=== PATIENT | male | born 1955 | race Caucasian/White ===

== ENCOUNTER 2018-07-16 18:09 | Emergency (ER) | payer SELFPAY ==
--- NOTE | 2018-07-16 18:25 | ER Document Report ---
ED General - General Chief Complaint: Altered Mental Status Stated Complaint: POSSIBLE STROKE Time Seen by Provider: 07/16/18 18:19 Notes: Patient is a 63-year-old male with diabetes mellitus and hypertension that presents to the emergency department for chief complaint of altered mental status. History provided by EMS as the patient is not following commands currently. Per EMS the patient was last seen normal at 515. He started acting unusual, not talking, not following commands, he is normally alert, and walking normally, and per family they told EMS that he is typically talkative, and does not act this way, and never has before. No other history is obtainable at this time, has on history taking the patient is aphasic, and not talking at all at this time. Further history obtained by his at bedside, stated that he suddenly stopped speaking, and appeared scared, and was not answering questions or acting his normal self Past Medical History: Hypertension, diabetes mellitus Past Surgical History: Not obtainable at this time Social History: Smokes cigarettes daily, no alcohol or drug use. Family History: Reviewed and noncontributory for presenting illness Allergies: Reviewed, see documented allergy list. REVIEW OF SYSTEMS: Unless otherwise stated in this report the patient's positive and negative responses for review of systems for constitutional, eyes, ENT, cardiovascular, respiratory, gastrointestinal, neurological, genitourinary, musculoskeletal, and integumentary systems and related systems to the presenting problem are either as stated in the HPI or were not pertinent or were negative for the symptoms and/or complaints related to the presenting medical problem. PHYSICAL EXAMINATION: Vital signs reviewed, nursing noted reviewed. GENERAL: Well-appearing, well-nourished and in no acute distress. HEAD: Atraumatic, normocephalic. EYES: Eyes appear normal, extraocular movements intact, sclera anicteric, conjunctiva are normal. ENT: nares patent, oropharynx clear without exudates. Moist mucous membranes. NECK: Normal range of motion, supple without lymphadenopathy LUNGS: Breath sounds clear to auscultation bilaterally and equal. No wheezes rales or rhonchi. HEART: Regular rate and rhythm without murmurs ABDOMEN: Soft, nontender, normoactive bowel sounds. No rebound, guarding, or rigidity. No masses appreciated. EXTREMITIES: Nontender, good range of motion, no pitting or edema. NEUROLOGICAL: Patient moving all limbs, will withdrawal to pain in all limbs, appears to have receptive and expressive aphasia at this time, but would shake my hand, and follow what appeared to be social norms, in an attempt to understand what I was asking him. But would not follow simple commands such as asking him to point to the ceiling with his left hand. No obvious facial droop PSYCH: Flat affect, aphasic SKIN: Warm, Dry, normal turgor, no rashes or lesions noted on exposed skin - Related Data Allergies/Adverse Reactions: No Known Allergies Allergy (Unverified 07/16/18 19:27) Past Medical History - Social History Smoking Status: Current Every Day Smoker Family History: Reviewed & Not Pertinent Physical Exam - Vital signs Vitals: Pulse Resp BP Pulse Ox 109 H 18 118/71 97 07/16/18 18:10 07/16/18 18:10 07/16/18 18:10 07/16/18 18:10 Course - Re-evaluation Re-evalutation: Patient seen and examined vital signs reviewed. Laboratory data and imaging were ordered as appropriate for the patient's presenting symptoms and complaint, with consideration of any critical or life threatening conditions that may be associated with their obtained history and exam as noted above. NIH stroke scale score: 6, for inability to follow commands, and severe aphasia Results were reviewed when available and demonstrated acute thrombus in the left carotid artery, which is consistent with the patient's symptoms of aphasia , on my repeat evaluation, the patient was speaking, and was still noted to have receptive aphasia I called [facility], for transfer by [facility], for acute intervention, for his acute thrombus, causing his severe debilitating symptoms of expressive aphasia Plan for TPA, waiting for callback, if they want me to treat the patient with TPA prior to transfer. I personally discussed the risks and benefits of systemic TPA administration for acute CVA, including a 1 in 14 chance for intracranial hemorrhage, and other sources of bleeding, this patient I felt the benefits outweigh the risks, given that he was aphasic, which is a detriment, and severe disability, the patient's agreed and consented on the patient's behalf, as he currently had expressive aphasia. Case discussed with [facility], agreed with TPA administration, this was ordered, patient was given bolus and infusion, reevaluation the patient was improved, patient will be transported, initially plan was for air transport, however they were not flying, and ground transfer had to be arranged despite best efforts to have air transport, this was discussed with both the patient and patient's who is at bedside, and they agreed with this plan of care. Additionally the patient was given IV fluids after receiving contrast dye. Evaluation was most consistent with acute CVA causing expressive aphasia Results were discussed with the patient at this point after careful consideration I feel that that patient should be transferred to [facility] due to acute CVA, that potentially could benefit from clot retrieval, case was discussed with Dr. Ceasar Parker. This was discussed with the patient and his that it is in the best interest for their care to be transferred, the risks and benefits of transfer were discussed , including but not limited to clinical deterioration during transport, respiratory distress, and potential for traumatic injuries. Patient agreed with this plan of care. Patient was seen prior to transport when EMS arrived, was in stable condition, and cleared for transport. *Note is created using voice recognition software and may contain spelling, syntax or grammatical errors. Chest X-Ray 07/16/18 00:00 IMPRESSION: Cannot exclude left lower lobe pneumonia. Head CT 07/16/18 18:19 IMPRESSION: NORMAL BRAIN CT WITHOUT CONTRAST. EVIDENCE OF ACUTE STROKE: NO. Head CTA 07/16/18 18:19 IMPRESSION: NO CTA EVIDENCE OF STENOSIS OR ANEURYSM OF THE [place]. Neck CTA 07/16/18 18:19 IMPRESSION: FILLING DEFECT OCCUPYING MOST OF THE LUMEN OF THE PROXIMAL LEFT COMMON CAROTID ARTERY BEGINNING AT THE AORTIC ARCH AND EXTENDING FOR A LENGTH OF APPROXIMATELY 2 CM. THIS COULD REPRESENT A THROMBUS OR A LARGE PLAQUE. THE REMAINDER OF THE RIGHT AND LEFT CAROTID ARTERIES ARE OTHERWISE PATENT WITH NO SIGNIFICANT STENOSIS AND NO OCCLUSIONS. VERTEBRAL ARTERIES ARE ALSO PATENT. Laboratory 07/16/18 07/16/18 07/16/18 18:35 18:35 18:35 WBC 10.2 RBC 5.20 Hgb 15.4 Hct 43.7 MCV 84 MCH 29.6 MCHC 35.3 RDW 13.6 Plt Count 236 Seg Neutrophils % 68.1 Lymphocytes % 18.2 Monocytes % 7.9 Eosinophils % 5.2 Basophils % 0.6 Absolute Neutrophils 7.0 Absolute Lymphocytes 1.9 Absolute Monocytes 0.8 Absolute Eosinophils 0.5 Absolute Basophils 0.1 PT 14.6 INR 1.08 APTT 33.3 Sodium 134.6 L Potassium 4.7 Chloride 104 Carbon Dioxide 22 Anion Gap 9 BUN 31 H Creatinine 1.50 H Est GFR ( Amer) 57 L Est GFR (Non-Af Amer) 47 L Glucose 141 H Calcium 9.1 Magnesium 2.4 H Total Bilirubin 1.4 H Direct Bilirubin 0.6 H Neonat Total Bilirubin Not Reportable Neonat Direct Bilirubin Not Reportable Neonat Indirect Bili Not Reportable AST 34 ALT 45 Alkaline Phosphatase 66 Total Protein 7.3 Albumin 4.2 Serum Alcohol < 10 - Vital Signs Vital signs: Temp Pulse Resp BP Pulse Ox 98.7 F 102 H 18 146/82 H 97 07/16/18 21:31 07/16/18 21:38 07/16/18 21:38 07/16/18 21:38 07/16/18 21:38 - Laboratory Result Diagrams: 07/16/18 18:35 07/16/18 18:35 Laboratory results interpreted by me: 07/16/18 18:35 Sodium 134.6 L BUN 31 H Creatinine 1.50 H Est GFR ( Amer) 57 L Est GFR (Non-Af Amer) 47 L Glucose 141 H Magnesium 2.4 H Total Bilirubin 1.4 H Direct Bilirubin 0.6 H - EKG Interpretation by Me Additional EKG results interpreted by me: 07/16/18 18:36 EKG demonstrates sinus tachycardia with a ventricular rate of 112 bpm, left axis deviation, normal intervals, no evidence of acute ischemia on this EKG. Critical Care Note - Critical Care Note Total time excluding time spent on procedures (mins): 80 Comments: Critical care time 80 minutes exclusive from separate billable procedures for a patient requiring complex medical decision making, and high potential for clinical deterioration. In a patient with acute CVA, requiring TPA administration, and multiple repeat evaluations, and discussion with specialist. Time spent obtaining history from patient or surrogate, discussions with consultants, development of treatment plan with patient or surrogate, evaluation of patient's response to treatment, examination of patient , ordering and performing treatments and interventions, ordering and review of laboratory studies, re-evaluation of patient's condition, ordering and review of radiographic studies and review of old charts Discharge - Discharge Clinical Impression: Acute CVA (cerebrovascular accident), Aphasia, Renal impairment Condition: Critical Disposition: [facility]
--- NOTE | 2018-07-16 18:37 | RADIOLOGY REPORT (SQ) ---
EXAM DESCRIPTION: CHEST SINGLE VIEW COMPLETED DATE/TIME: 07/16/2018 6:29 pm REASON FOR STUDY: STROKE PROTOCOL COMPARISON: None. EXAM PARAMETERS: NUMBER OF VIEWS: One view. TECHNIQUE: Single frontal radiographic view of the chest acquired. RADIATION DOSE: NA LIMITATIONS: None. FINDINGS: LUNGS AND PLEURA: Ill-defined opacification in the left base. MEDIASTINUM AND HILAR STRUCTURES: No masses. Contour normal. HEART AND VASCULAR STRUCTURES: Heart normal in size. Normal vasculature. BONES: No acute findings. HARDWARE: None in the chest. OTHER: No other significant finding. IMPRESSION: Cannot exclude left lower lobe pneumonia. TECHNICAL DOCUMENTATION: JOB ID: [id number] [employer]- All Rights Reserved Reading location - IP/workstation name: [email or web address]
[2018-07-16 18:42] LABS: ABSOLUTE BASOPHILS # (AUTO) 0.1 10^3/uL (0.0-0.2); ABSOLUTE EOSINOPHILS # (AUTO) 0.5 10^3/uL (0.0-0.6); ABSOLUTE LYMPHOCYTES (AUTO) 1.9 10^3/uL (0.5-4.7); ABSOLUTE MONOCYTES (AUTO) 0.8 10^3/uL (0.1-1.4); BASOPHILS % (AUTO) 0.6 % (0-2); EOSINOPHILS % (AUTO) 5.2 % (0-6); HEMATOCRIT 43.7 % (37.9-51.0); HEMOGLOBIN 15.4 g/dL (13.5-17.0); LYMPHOCYTES % (AUTO) 18.2 % (13-45); MEAN CORPUSCULAR HEMOGLOBIN 29.6 pg (27.0-33.4); MEAN CORPUSCULAR HGB CONC 35.3 g/dL (32.0-36.0); MEAN CORPUSCULAR VOLUME 84 fl (80-97); MONOCYTES % (AUTO) 7.9 % (3-13); PLATELET COUNT 236 10^3/uL (150-450); RED CELL DISTRIBUTION WIDTH 13.6 % (11.5-14.0); SEGMENTED NEUTROPHILS % (AUTO) 68.1 % (42-78); TOTAL CELLS COUNTED % (AUTO) 100 %; WHITE BLOOD COUNT 10.2 10^3/uL (4.0-10.5)
--- NOTE | 2018-07-16 18:47 | RADIOLOGY REPORT (SQ) ---
EXAM DESCRIPTION: CT HEAD WITHOUT COMPLETED DATE/TIME: 07/16/2018 6:35 pm REASON FOR STUDY: aphasic STROKE PROTOCOL COMPARISON: None. TECHNIQUE: Axial images acquired through the brain without intravenous contrast. Images reviewed wi th bone, brain and subdural windows. Additional sagittal and coronal reconstructions were generated. Images stored on PACS. All CT scanners at this facility use dose modulation, iterative reconstruction, and/or weight based d osing when appropriate to reduce radiation dose to as low as reasonably achievable (ALARA). [facility]: Dose Right [facility]: CareDose [facility]: Dose Right [facility]: Teradose 4D [facility]: [employer] RADIATION DOSE: mGy. LIMITATIONS: None. FINDINGS: VENTRICLES: Normal size and contour. CEREBRUM: No masses. No hemorrhage. No midline shift. No evidence for acute infarction. Normal gra y/white matter differentiation. No areas of low density in the white matter. CEREBELLUM: No masses. No hemorrhage. No alteration of density. No evidence for acute infarction. EXTRAAXIAL SPACES: No fluid collections. No masses. ORBITS AND GLOBE: No intra- or extraconal masses. Normal contour of globe without masses. CALVARIUM: No fracture. PARANASAL SINUSES: No fluid or mucosal thickening. SOFT TISSUES: No mass or hematoma. OTHER: No other significant finding. IMPRESSION: NORMAL BRAIN CT WITHOUT CONTRAST. EVIDENCE OF ACUTE STROKE: NO. COMMENT: Pertinent positive or negative findings of the imaging study reported as a CRITICAL EXAM mohan MCNAIRE at18:41 on 07/16/2018. Category of Critical Exam: Stroke protocol. Quality ID # 436: Final reports with documentation of one or more dose reduction techniques (e.g., Au tomated exposure control, adjustment of the mA and/or kV according to patient size, use of iterative reconstruction technique) TECHNICAL DOCUMENTATION: JOB ID: [id number] [employer]- All Rights Reserved Reading location - IP/workstation name: [email or web address]
--- NOTE | 2018-07-16 18:50 | RADIOLOGY REPORT (SQ) ---
EXAM DESCRIPTION: CTA HEAD COMPLETED DATE/TIME: 07/16/2018 6:38 pm REASON FOR STUDY: aphasic COMPARISON: CT head 07/16/2018 TECHNIQUE: Post IV contrast scanning, thin section axial imaging through the brain to evaluate the a rterial structures. Source and MIP images are saved and reviewed on PACS. Advanced 3D imaging as volume-rendering, MIPs, SSD performed? yes All CT scanners at this facility use dose modulation, iterative reconstruction, and/or weight based d osing when appropriate to reduce radiation dose to as low as reasonably achievable (ALARA). [facility]: Dose Right [facility]: CareDose [facility]: Dose Right [facility]: Teradose 4D [facility]: [employer] CONTRAST TYPE AND DOSE: Not recorded. RENAL FUNCTION: Waived by emergency room physician. LIMITATIONS: None. FINDINGS: [place]: The anterior, middle, posterior cerebral arteries are all patent. No ev idence of aneurysm or focal stenosis. POSTERIOR CIRCULATION: The distal vertebral arteries are patent as is the basilar artery. No aneurysm . BRAIN: No gross enhancing lesions as visualized. The superior cerebral hemispheres are not included in the field of view. BONES: Intact as visualized. SINUSES: No fluid or mucosal thickening. OTHER: No other significant finding. IMPRESSION: NO CTA EVIDENCE OF STENOSIS OR ANEURYSM OF THE [place]. TECHNICAL DOCUMENTATION: JOB ID: [id number] Quality ID # [id number]: Final reports with documentation of one or more dose reduction techniques (e.g., Au tomated exposure control, adjustment of the mA and/or kV according to patient size, use of iterative reconstruction technique) 2010 [employer]- All Rights Reserved Reading location - IP/workstation name: [email or web address]
--- NOTE | 2018-07-16 18:56 | RADIOLOGY REPORT (SQ) ---
EXAM DESCRIPTION: CTA NECK COMPLETED DATE/TIME: 07/16/2018 6:38 pm REASON FOR STUDY: aphasic COMPARISON: None. TECHNIQUE: Axial dynamic scanning technique with dynamic contrast enhancement through the extra-aircraft engine dismantler nial carotid and vertebral arteries. Multiplanar reconstruction. 3-D MIPS and Volume-rendered imag es acquired at the workstation and saved to PACS. Images are reviewed in soft tissue, bone, lung w indows. All CT scanners at this facility use dose modulation, iterative reconstruction, and/or weight based d osing when appropriate to reduce radiation dose to as low as reasonably achievable (ALARA). [facility]: Dose Right [facility]: CareDose [facility]: Dose Right [facility]: Teradose 4D [facility]: [employer] CONTRAST TYPE AND DOSE: 70 mL Omnipaque 350- low osmolar. RENAL FUNCTION: Not available. LIMITATIONS: None. FINDINGS: AORTIC ARCH: Normal three-vessel origin. Bilateral subclavian arteries are patent. No d issection. RIGHT CAROTIDS: Patent common, internal and external carotid arteries without suggestion of significa nt stenosis or irregular plaque. No dissection. RIGHT VERTEBRAL: Patent. No dissection. LEFT CAROTIDS: There is a filling defect occupying most of the lumen of the common carotid artery beg inning at the aortic arch and extending for a length of approximately 2 cm. This is best demonstrate d on axial series 3, image 25 and sagittal series 202, image 54. The remainder of the common carotid artery is normal in caliber and otherwise patent. Patent internal and external carotid arteries wit hout suggestion of significant stenosis or irregular plaque. No dissection. LEFT VERTEBRAL: Patent. No dissection. OTHER: No other significant finding. OTHER: 3-D reconstructions confirm findings. IMPRESSION: FILLING DEFECT OCCUPYING MOST OF THE LUMEN OF THE PROXIMAL LEFT COMMON CAROTID ARTERY BE GINNING AT THE AORTIC ARCH AND EXTENDING FOR A LENGTH OF APPROXIMATELY 2 CM. THIS COULD REPRESENT A THROMBUS OR A LARGE PLAQUE. THE REMAINDER OF THE RIGHT AND LEFT CAROTID ARTERIES ARE OTHERWISE PATEN T WITH NO SIGNIFICANT STENOSIS AND NO OCCLUSIONS. VERTEBRAL ARTERIES ARE ALSO PATENT. COMMENT: Pertinent findings on the imaging study reported as a CRITICAL RESULT to MICHELE Rivera 8:50 on 07/16/2018. Category of Critical Result: Thrombus or large plaque in the proximal left common carotid artery. Quality ID #[id number]: Measurements of distal internal carotid diameter were used as the denominator for st enosis measurement. TECHNICAL DOCUMENTATION: JOB ID: [id number] Quality ID # 436: Final reports with documentation of one or more dose reduction techniques (e.g., Au tomated exposure control, adjustment of the mA and/or kV according to patient size, use of iterative reconstruction technique) 2010 [employer]- All Rights Reserved Reading location - IP/workstation name: [email or web address]
[2018-07-16 19:08] LABS: ALANINE AMINOTRANSFERASE 45 U/L (21-72); ALBUMIN 4.2 g/dL (3.5-5.0); ALKALINE PHOSPHATASE 66 U/L (38-126); ANION GAP 9 (5-19); ASPARTATE AMINO TRANSFERASE 34 U/L (17-59); BILIRUBIN,DIRECT 0.6 mg/dL (0.0-0.4); BILIRUBIN,TOTAL 1.4 mg/dL (0.2-1.3); BLOOD UREA NITROGEN 31 mg/dL (7-20); CALCIUM 9.1 mg/dL (8.4-10.2); CARBON DIOXIDE 22 mmol/L (22-30); CHLORIDE 104 mmol/L (98-107); GLUCOSE 141 mg/dL (75-110); POTASSIUM 4.7 mmol/L (3.6-5.0); SODIUM 134.6 mmol/L (137-145); TOTAL PROTEIN 7.3 g/dL (6.3-8.2)
[2018-07-16 19:09] LABS: ALCOHOL < 10 mg/dL (NONE DETECTED)
[2018-07-16] MEDS ORDERED: ALTEPLASE INJ 100 MG VIAL IV ONE (19:18)
[2018-07-16] MEDS ORDERED: NORMAL SALINE 1000 ML 1,000 ML IV ONE (19:19)
[2018-07-16 19:38] LABS: INTERNATIONAL RATION (INR) 1.08; PARTIAL THROMBOPLASTIN TIME 33.3 SEC (23.5-35.8); PROTHROMBIN TIME 14.6 SEC (11.4-15.4)
[2018-07-16 21:39] VITALS: BP 146/82
--- NOTE | 2018-07-16 23:31 | EKG REPORT ---
SEVERITY:- OTHERWISE NORMAL ECG - SINUS TACHYCARDIA : Confirmed by: Aleksandra Torres MD 16-Jul-2018 23:30:25
--- NOTE | 2018-07-17 11:43 | EKG REPORT ---
SEVERITY:- OTHERWISE NORMAL ECG - SINUS TACHYCARDIA : Confirmed by: Aleksandra Torres MD 17-Jul-2018 11:42:53
== END 2018-07-16 21:41 | disposition short-term general hospital (02) ==
LOC: ER 18:09
DX: I63.8 Other cerebral infarction (principal); R47.01 Aphasia; R41.82 Altered mental status, unspecified; E11.9 Type 2 diabetes mellitus without complications; I10 Essential (primary) hypertension
CPT/HCPCS: 93005; 36415; 80307; 83735; 85025; 85610; 85730; 80053; 71045; 70450; 70496; 70498; 93010; J2997